=== PATIENT | female | born 1970 | race American Indian/Alaskan Native ===

== ENCOUNTER 2016-05-18 19:01 | Emergency (ER) | payer SELFPAY ==
--- NOTE | 2016-05-19 01:38 | Emergency Department Report ---
HPI - General Chief Complaint: Upper Respiratory Infection Time Seen by Provider: 05/19/16 01:33 - HPI HPI: Patient here reports that she's been having flulike symptoms for the last week. She says that his gun worse over the last 4 days. Reports Jacinta-Holgate and TheraFlu with minimal relief.She reports chills that any fever She denies any pain at present. Denies any chest pain or shortness of breath. Fourth facial pain and nasal congestion which is better when she takes Jacinta-Holgate and TheraFlu. She has a history of high blood pressure but she does not take any medication. ED Past Medical Hx - Past Medical History Previous Medical History?: Yes Hx Hypertension: Yes (no meds) - Surgical History Past Surgical History?: No - Family History Family history: hypertension - Social History Smoking Status: Never Smoker Substance Use Type: None - Medications Home Medications: Home Medications Medication Instructions Recorded Confirmed Last Taken Type Cefuroxime Axetil [Ceftin] 500 mg PO Q12H #20 tablet 08/21/13 Unknown Rx Fluconazole [Diflucan] 150 mg PO QDAY #2 tablet 08/21/13 Unknown Rx Ciprofloxacin HCl [Cipro] 500 mg PO Q12H #6 tab 10/13/13 Unknown Rx Cyclobenzaprine [Flexeril 10mg] 10 mg PO Q8H PRN #21 tablet 10/13/13 Unknown Rx Fluconazole [Diflucan TAB] 150 mg PO ONCE #1 tablet 01/09/15 Unknown Rx Sulfamethoxazole/Trimethoprim 1 each PO BID #10 tablet 01/09/15 Unknown Rx [Bactrim DS TAB] Acetaminophen/Codeine [Tylenol #3] 1 tab PO Q6H PRN #10 tab 01/24/15 Unknown Rx Cyclobenzaprine [Flexeril 10 MG 10 mg PO TID PRN #15 tablet 01/24/15 Unknown Rx TAB] Ibuprofen [Motrin 800 MG tab] 800 mg PO Q8HR PRN #30 tablet 01/24/15 Unknown Rx Nitrofurantoin Glascock/M-Cryst 100 mg PO Q12HR #14 capsule 01/24/15 Unknown Rx [Macrobid CAP] Phenazopyridine [Pyridium] 100 mg PO TID #6 tab 01/24/15 Unknown Rx Ibuprofen [Motrin] 800 mg PO Q8HR PRN #60 tablet 05/02/15 Unknown Rx Sulfamethoxazole/Trimethoprim 1 each PO BID #14 tablet 05/02/15 Unknown Rx [Bactrim DS TAB] traMADol [Ultram] 50 mg PO Q6HR PRN #14 tablet 05/02/15 Unknown Rx Azithromycin [Zithromax] 250 mg PO QDAY #6 tablet 05/19/16 Unknown Rx Cetirizine HCl [ZyrTEC] 10 mg PO QDAY #15 capsule 05/19/16 Unknown Rx Fluticasone [Flonase] 1 spray NS QDAY #1 bottle 05/19/16 Unknown Rx predniSONE [Deltasone] 50 mg PO QDAY #5 tab 05/19/16 Unknown Rx ED Review of Systems ROS: Stated complaint: FLU SYMPTOMS Other details as noted in HPI Comment: All other systems reviewed and negative Constitutional: chills. denies: fever Eyes: denies: eye pain, eye discharge ENT: congestion. denies: ear pain, throat pain Respiratory: cough. denies: orthopnea, shortness of breath, SOB with exertion, SOB at rest, stridor, wheezing Cardiovascular: denies: chest pain, palpitations, edema, syncope Gastrointestinal: denies: abdominal pain, nausea, vomiting, diarrhea, constipation Musculoskeletal: denies: back pain, arthralgia Skin: denies: rash Neurological: denies: headache, weakness, numbness, paresthesias, confusion, abnormal gait, vertigo Physical Exam - Physical Exam Vital Signs: Vital Signs 05/18/16 23:10 Temperature 98.4 F Pulse Rate 92 H Respiratory 18 Rate Blood Pressure 123/78 O2 Sat by Pulse 99 Oximetry General: 46-year-old male well-nourished well-developed in no acute distress. Physical Exam: Head: [Normocephalic atraumatic Mouth: Moist, no pharyngeal exudate or erythema. Uvula is midline and oral airway is patent. No gingival enlargement or dental tenderness. No facial swelling. No peritonsillar abscesses. Neck: Supple, no C-spine tenderness, no tracheal deviation. Nontender to palpate. no adenopathy Ears: Bilateral TMs congested without erythema .bilateral EAC without any redness swelling or drainage Eyes: Bilateral pupils equal and reactive to light, bilateral EOM intact. Bilateral sclera and conjunctiva without injection. Normal accommodation Nose: Mucosa moist, positive congestion with erythema. Positive clear drainage. Positive maxillary sinus tender to palpate. Lungs:Clear to auscultate bilaterally no rhonchi wheezes or rales. Normal work of breathing extremity; No CCE. +2 pulses. No neurovascular compromise Cardiovascular: S1-S2, regular rate rhythm. No murmurs. Skin: clean Dry and intact no rash no lesions Psych: Normal mood and behavior ED Course Vital Signs 05/18/16 23:10 Temperature 98.4 F Pulse Rate 92 H Respiratory 18 Rate Blood Pressure 123/78 O2 Sat by Pulse 99 Oximetry - Reevaluation(s) Reevaluation #1: 05/19/16 01:39 Remained stable throughout ED course. ED Medical Decision Making - Medical Decision Making ED course: I discussed the patient is an physical finding she has acute masses or sinusitis and will be treated with steroids, antibiotics and is Flonase. I instructed her she can use [id number] Zyrtec. Patient voiced understanding of discharge instruction discharged home with prescription for prednisone to start later this morning, Zithromax, nasal Flonase and Zyrtec. Critical care attestation.: If time is entered above; I have spent that time in minutes in the direct care of this critically ill patient, excluding procedure time. ED Disposition Clinical Impression: Cough Maxillary sinusitis Qualifiers: Chronicity: acute Recurrence: not specified as recurrent Qualified Code(s): J01.00 - Acute maxillary sinusitis, unspecified Disposition: DISCHARGED TO HOME OR SELFCARE Is pt being admited?: No Does the pt Need Aspirin: No Condition: Stable Instructions: Sinusitis (ED), Acute Cough in Children (ED) Additional Instructions: Flush nostrils with nasal saline flush. Take Medication as prescribed. Prescriptions: predniSONE [Deltasone] 50 mg PO QDAY #5 tab Fluticasone [Flonase] 1 spray NS QDAY #1 bottle Azithromycin [Zithromax] 250 mg PO QDAY #6 tablet Cetirizine HCl [ZyrTEC] 10 mg PO QDAY #15 capsule Referrals: [facility] [Outside] - 3-5 Days Forms: Accompanied Note, Work/School Release Form(ED)
[2016-05-19 07:18] VITALS: BP 126/75
== END 2016-05-19 01:35 | disposition home or self-care (01) ==
LOC: ED 19:01
DX: R05 Cough (principal); J01.00 Acute maxillary sinusitis, unspecified; I10 Essential (primary) hypertension
CPT/HCPCS: 99282

== ENCOUNTER 2016-11-18 17:40 | Emergency (ER) | payer MEDICAID ==
--- NOTE | 2016-11-18 17:58 | Emergency Department Report ---
Chief Complaint: Vaginal Bleeding Stated Complaint: BLEEDING/PAIN Time Seen by Provider: 11/18/16 17:55 - HPI History of Present Illness: PT states she saw her OB/ SEED CLEANING MANAGER this morning. PT states she was dx with demise over a week ago. 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 - ROS Review of Systems: + bleeding + pelvic pain - Exam Vital Signs: Vital Signs 11/18/16 17:44 Temperature 99 F Pulse Rate 99 H Respiratory 20 Rate Blood Pressure 139/90 O2 Sat by Pulse 99 Oximetry Physical Exam: PT looks well, non toxic but appears in pain. steady gait MSE screening note: Focused history and physical exam performed. Due to findings the following was ordered: labs ED Disposition for MSE Condition: Stable
[2016-11-18 18:08] LABS: Basophils % (Auto) 0.8 % (0.0-1.8); Eosinophils % (Auto) 1.6 % (0.0-4.3); Hematocrit 33.1 % (30.3-42.9); Hemoglobin 10.9 gm/dl (10.1-14.3); Mean Corpuscular HGB Conc 33 % (30-34); Mean Corpuscular Hemoglobin 27 pg (28-32); Mean Corpuscular Volume 82 fl (79-97); Platelet Count 306 K/mm3 (140-440); Red Blood Count 4.02 M/mm3 (3.65-5.03); White Blood Count 9.7 K/mm3 (4.5-11.0)
[2016-11-18 18:28] LABS: Anion Gap 26 mmol/L; BUN/Creatinine Ratio 11.66; Blood Urea Nitrogen 7 mg/dL (7-17); Calcium 9.3 mg/dL (8.4-10.2); Carbon Dioxide 17 mmol/L (22-30); Chloride 97.6 mmol/L (98-107); Glucose 101 mg/dL (65-100); Potassium 3.6 mmol/L (3.6-5.0); Sodium 137 mmol/L (137-145)
[2016-11-18] MEDS ORDERED: MORPHINE IV ONE (20:25)
--- NOTE | 2016-11-18 20:36 | Emergency Department Report ---
HPI - General Chief Complaint: Vaginal Bleeding Time Seen by Provider: 11/18/16 17:55 - HPI HPI: This is a 46-year-old Afro-[place] female presents to the emergency department with complaint of moderate to heavy vaginal bleeding and painful pelvic cramping. The patient was about 7.5 weeks at when she recently was diagnosed with a partial miscarriage by her LOADING MACHINE TOOL SETTER, Dr. Latesha Clark. She is scheduled for a D&C on the but says that the pain and bleeding had increased and seemed out of proportion with what was happening. She says she has given to 2 children previously and she says that she feels like she is having contraction-like pains. She denies any fever, dysuria, vomiting, diarrhea. She took an Excedrin for her pain without any relief. He travel or sick contacts at home. ED Past Medical Hx - Past Medical History Previous Medical History?: Yes Hx Hypertension: Yes (no meds) Additional medical history: miscarriage - Surgical History Past Surgical History?: No - Social History Smoking Status: Never Smoker Substance Use Type: Prescribed - Medications Home Medications: Home Medications Medication Instructions Recorded Confirmed Last Taken Type oxyCODONE /ACETAMINOPHEN [Percocet 1 tab PO Q6HR PRN #10 tablet 11/18/16 Unknown Rx 5/325] ED Review of Systems ROS: Stated complaint: BLEEDING/PAIN Other details as noted in HPI Comment: All other systems reviewed and negative Constitutional: denies: chills, fever Eyes: denies: eye pain, eye discharge, vision change ENT: denies: ear pain, throat pain Respiratory: denies: cough, shortness of breath, wheezing Cardiovascular: denies: chest pain, palpitations Gastrointestinal: abdominal pain, nausea. denies: vomiting Genitourinary: dysuria, discharge, other (vaginal bleeding) Musculoskeletal: denies: back pain, joint swelling, arthralgia Skin: denies: rash, lesions Neurological: denies: headache, weakness, paresthesias Physical Exam - Physical Exam Vital Signs: Vital Signs 11/18/16 17:44 Temperature 99 F Pulse Rate 99 H Respiratory 20 Rate Blood Pressure 139/90 O2 Sat by Pulse 99 Oximetry Physical Exam: GENERAL: The patient is well-developed well-nourished. HEENT: Normocephalic. Atraumatic. Extraocular motions are intact. Patient has moist mucous membranes. Pupils equal reactive to light bilaterally. NECK: Supple. Trachea is midline. CHEST/LUNGS: Clear to auscultation. There is no respiratory distress noted. HEART/CARDIOVASCULAR: Regular. There is no tachycardia. There is no gallop rub or murmur. ABDOMEN: Abdomen is soft, nontender. Patient has normal bowel sounds. There is no abdominal distention. SKIN: Skin is warm and dry. NEURO: The patient is awake, alert, and oriented. The patient is cooperative. The patient has no focal neurologic deficits. The patient has normal speech and gait. MUSCULOSKELETAL: There is no tenderness or deformity. There is no limitation range of motion. There is no evidence of acute injury. ED Course Vital Signs 11/18/16 17:44 Temperature 99 F Pulse Rate 99 H Respiratory 20 Rate Blood Pressure 139/90 O2 Sat by Pulse 99 Oximetry - Consultations Consultation #1: I spoke to the patient's LOADING MACHINE TOOL SETTER service, Dr. Mary Velasco, regarding the incomplete miscarriage and increased abdominal pain and bleeding today. Based on the patient's improvement in the emergency department, her labs and vitals, Dr. Velasco agrees that the patient appears safe for discharge home at this time. She will follow-up on the for her D&C as previously scheduled.. 11/18/16 22:48 ED Medical Decision Making - Lab Data Result diagrams: 11/18/16 18:00 11/18/16 18:00 - Radiology Data Radiology results: report reviewed Pelvic/ ultrasound shows a gestational sac measuring up to 3.1 cm is present within the lower uterine segment endometrium. No recorded cardiac activity. Continue followed up of retained products is suggested. - Medical Decision Making 46-year-old female presents with known incomplete miscarriage but increased pain and bleeding. Labs are unremarkable. Ultrasound shows gestational sac in the uterus with no record cardiac activity consistent with previous diagnosis and history. Patient felt better after low-dose morphine. Vital signs stable throughout her ED course including being afebrile. Labs are unremarkable. Patient will follow-up with LOADING MACHINE TOOL SETTER service on , 2 days from now, as previously scheduled but will return to the ER with any worsening of her symptoms or any acute distress. - Differential Diagnosis , miscarriage, fibroids Critical Care Time: No Critical care attestation.: If time is entered above; I have spent that time in minutes in the direct care of this critically ill patient, excluding procedure time. ED Disposition Clinical Impression: Incomplete miscarriage, Pelvic pain Disposition: DC- TO HOME OR SELFCARE Is pt being admited?: No Condition: Stable Instructions: Threatened Miscarriage (ED), Spontaneous Miscarriage (ED) Additional Instructions: Please follow-up with your LOADING MACHINE TOOL SETTER on the for your D&C as previously scheduled. They should touch base with few tomorrow regarding scheduling. Return to the emergency department with any worsening of your symptoms or any acute distress. You've been prescribed a medication that is sedating. Therefore this medication cannot be mixed with alcohol, or taken prior to driving, working, or being responsible for children. Prescriptions: oxyCODONE /ACETAMINOPHEN [Percocet 5/325] 1 tab PO Q6HR PRN #10 tablet PRN Reason: Pain Referrals: LATESHA CLARK MD [Staff Physician] - 11/20/16 Time of Disposition: 22:57
[2016-11-18 21:00] LABS: Bilirubin,Urine NEG (Negative); Blood,Urine LG (Negative); Ketones,Urine NEG (Negative); Leukocyte Esterase,Urine TR (Negative); Mucus,Urine FEW /HPF; Nitrite,Urine NEG (Negative)
[2016-11-18 21:01] LABS: RBC,Urine > 182.0 /HPF (0.0-6.0)
[2016-11-18 21:40] VITALS: BP 142/89
--- NOTE | 2016-11-18 22:09 | Ultrasound Report ---
FINAL REPORT EXAM: US OB \T\lt; = 14 WEEKS FETUS HISTORY: Recent miscarriage, vag bleeding, products retaine COMPARISONS: None. FINDINGS: Transabdominal grayscale, color and M-mode ultrasound evaluation of the pelvis Probable gestational sac is present within the lower uterine segment endometrium and measures up to 3.1 cm in greatest dimension. An 8 millimeter embryo crown-rump length is suggested. No recorded cardiac activity. Fundal portion of the endometrium is homogeneous and measures up to 8 millimeters. The left ovary measures 3.1 x 2.7 x 3.2 cm and contains 2.4 cm dominant follicle. The right ovary is not well visualized secondary to overlying bowel gas. IMPRESSION: Gestational sac measuring up to 3.1 cm is present within the lower uterine segment endometrium. No recorded cardiac activity, compatible with provided history. Continued follow-up of retained products is suggested.
--- NOTE | 2016-11-19 02:45 | Ultrasound Report ---
FINAL REPORT PROCEDURE: US OB TRANSVAGINAL TECHNIQUE: Real-time transvaginal sonography of the uterus, placenta, amniotic fluid, adnexa, and fetus was performed with image documentation. Measurements were obtained to determine age/size. M-mode Doppler was used to document heartbeat. CPT 19605 HISTORY: Vaginal Bleeding, Recent misscarriage, products retaine COMPARISON: No prior studies are available for comparison. FINDINGS: The uterus size is 11.4 x 5 x 5.7 centimeters. Within the uterus there is a gestational sac. A pole is identified measuring 11 millimeters. This would correspond or approximate gestational age of 7 weeks. There is no evidence of embryonic heart activity. The findings are most consistent with embryonic demise. There are retained products within the uterus. The right ovary is not visualized. The left ovary size is 3.1 x 2.7 x 3.2 centimeters. There is a dominant cyst on the left ovary this measures 24 millimeters. IMPRESSION: There is a gestational sac within the uterus. The pole is identified with no evidence of embryonic heart activity. The findings are most consistent with embryonic demise and retained products within the uterus.
== END 2016-11-18 23:12 | disposition home or self-care (01) ==
LOC: ED 17:40
DX: O03.4 Incomplete spontaneous abortion without complication (principal); O16.1 Unspecified maternal hypertension, first trimester; Z3A.01 Less than 8 weeks gestation of pregnancy
CPT/HCPCS: 36415; 76801; 76817; 80048; 81001; 84702; 85025; 86850; 86900; 86901; 96374; 99284; J2270

== ENCOUNTER 2016-11-20 07:09 | Day surgery (SDC) | payer MEDICAID ==
--- NOTE | 2016-11-20 07:12 | History and Physical Report ---
History of Present Illness Date of examination: 11/20/16 Date of admission: 11/19/16 Chief complaint: missed History of present illness: 46yo female with missed and bleeding Past History Past Surgical History: No surgical history Social history: no significant social history, . denies: smoking, alcohol abuse, prescription drug abuse Family history: no significant family history Medications and Allergies Allergies Allergy/AdvReac Type Severity Reaction Status Date / Time Penicillins AdvReac Unknown Verified 11/19/16 12:21 Home Medications Medication Instructions Recorded Confirmed Last Taken Type oxyCODONE /ACETAMINOPHEN [Percocet 1 tab PO Q6HR PRN #10 tablet 11/18/16 Unknown Rx 5/325] Review of Systems All systems: negative Exam - General physical appearance Positive: well developed, well nourished, no distress, moderate distress - Neck Positive: no masses - Respiratory Positive: normal expansion, normal respiratory effort, clear to percussion, clear to auscultation - Cardiovascular Rhythm: regular Heart Sounds: Present: S1 & S2 - Extremities Extremities: No edema Peripheral Pulses: within normal limits - Breasts Breasts: deferred - Abdomen Abdomen: Present: soft, bowel sounds normal. Absent: tender, distended, guarding Hernia: none - Genitourinary Female Genitourinary: normal - Integumentary no rash, no abnormal pigmentation - Neurologic Neurologic: alert and oriented to time, place and person, motor strength and sensation are grossly intact, CN II-XII intact - Musculoskeletal normal gait, normal posture Assessment and Plan A/P Missed discussed treatment plan which include conservative vs meidical vs surgical Patient desires surgical intervention with D and C Discussed risk of surgery which include bleeding infection perforation damage to pelvic and non pelvic organs risk of hysterectomy and risk of patient agrees after discussion of risks , signed consents and will proceed with suction D and C
[2016-11-20] MEDS ORDERED: VERSED IV NR (08:00)
--- NOTE | 2016-11-20 08:46 | Anesthesia Day of Surgery ---
Anesthesia Day of Surgery - Day of Surgery Patient Examined: Yes Patient H&P Reviewed: Yes Patient is NPO: Yes
--- NOTE | 2016-11-20 08:47 | Anesthesia Consultation ---
Anesthesia Consult and Med Hx Date of service: 11/20/16 - Airway Anesthetic Teeth Evaluation: Good ROM Head & Neck: Adequate Mental/Hyoid Distance: Adequate Mallampati Class: Class II Intubation Access Assessment: Probably Good - Pulmonary Exam CTA: Yes - Cardiac Exam Cardiac Exam: RRR - Pre-Operative Health Status ASA Pre-Surgery Classification: ASA2 Proposed Anesthetic Plan: General - Pulmonary Hx Smoking: No Hx Asthma: No - Cardiovascular System Hx Hypertension: No - Central Nervous System Hx Seizures: No CVA: No Hx Psychiatric Problems: No - Endocrine Hx Renal Disease: No Hx Liver Disease: No Hx Hypothyroidism: No - Other Systems Hx Cancer: No Hx Obesity: Yes (BMI 32.4) - Additional Comments Anesthesia Medical History Comments: MISSED
[2016-11-20] MEDS ORDERED: PEPCID PO NR (09:00)
[2016-11-20] MEDS ORDERED: NACL 0.9% 1000 ML 1,000 ML IV SCH (09:00)
[2016-11-20] MEDS ORDERED: DILAUDID IV PRN (09:00)
[2016-11-20] MEDS ORDERED: ZOFRAN IV PRN (09:00)
[2016-11-20] MEDS ORDERED: XYLOCAINE MPF 2% ONE (09:07)
[2016-11-20] MEDS ORDERED: SUBLIMAZE ONE (09:07)
[2016-11-20] MEDS ORDERED: DIPRIVAN 10 MG/ML IV ONE (09:08)
[2016-11-20] MEDS ORDERED: DECADRON ONE (09:50)
[2016-11-20] MEDS ORDERED: ZOFRAN ONE (09:50)
--- NOTE | 2016-11-20 09:51 | Ultrasound Report ---
ULTRASOUND OB LESS THAN 14 WEEKS - TRANSABDOMINAL INDICATION: Endometrial evaluation before D\T\C. COMPARISON: 11/18/2016 FINDINGS: Transabdominal pelvic sonography performed in this patient with LMP of 09/01/2016 and estimated menstrual age of 11 weeks and 3 days. A 7.3 x 5.5 x 5.9 cm anteverted uterus again demonstrates an irregular gestational sac in the lower uterine segment with an intrinsic pole. Mean gestational sac diameter of 3 cm corresponds to 8 weeks and 1 day. Mean crown-rump length of 1.5 cm corresponds to 7 weeks and 6 days. No cardiac activity obtained. Endometrial thickness towards the fundus is 1.2 cm, image 8. No significant pelvic free fluid. Neither of the ovaries visualized. CONCLUSION: Sonographic findings in keeping with inevitable , intrauterine demise, as described. Please correlate. Thank you for the opportunity to participate in this patient's care.
[2016-11-20] MEDS ORDERED: NACL 0.9% IR ONE (10:00)
[2016-11-20] MEDS ORDERED: SILVER NITRATE TP ONE (10:04)
--- NOTE | 2016-11-20 11:51 | Post Anesthesia Evaluation ---
- Post Anesthesia Evaluation Patient Participated: Yes Airway Patent: Yes Stable Respiratory Function: Yes Nausea/Vomiting: No Temp > 96.8F: Yes Pain Manageable: Yes Adequeate Hydration: Yes Anesthesia Complications: No Block Receding Appropriately: Not Applicable Patient on Ventilator: No
[2016-11-20 12:29] VITALS: BP 121/82
--- NOTE | 2016-12-01 12:21 | Operative Report ---
Operative Report Operative Report: DATE OF OPERATION: 11/20/16 PREOPERATIVE DIAGNOSIS: Incomplete spontaneous with vaginal bleeding. POSTOPERATIVE DIAGNOSIS: Incomplete spontaneous with vaginal bleeding. OPERATION PERFORMED: Dilation and curettage. SURGEON: Latehsa Clark MD ASSISTANTS: None. ANESTHESIA: General endotracheal anesthesia. INDICATIONS FOR OPERATION: The patient is a 46 -year-old 3, para 2 at 8 weeks who presented today withhistory of missed with bleeding . The patient was seen in the emergency room where she was found to have dilated cervix and passing clots. There was no evidence of products of conception or passage of products of conception from the vagina. Transvaginal ultrasound performed in the emergency room showed no gestational sac in the uterus and a large amount of blood and tissue within the uterus near the internal os. The ultrasound in the emergency room also showed no fluid in the cul-de-sac and both adnexa were well visualized and within normal limits. The patient was counseled at that time for expectant management and dilation and curettage to evacuate the uterus and the patient choose to have the D&C. OPERATIVE FINDINGS: Pertinent findings at the time of procedure are products of conception at the internal os. Specimens removed were contents of uterus. Estimated blood loss min . No complications. DESCRIPTION OF PROCEDURE: The patient was taken from the preoperative holding area to the operating room. Prior to the procedure, the patient was fully counseled as to the risks, benefits, indications, and options for the procedure , to which the patient agreed. The patient was placed supine on the operating room table. General endotracheal anesthesia was administered, and once adequate anesthesia was demonstrated, the patients legs were then placed in candy cane stirrups. The patient was then prepped and draped in the standard surgical fashion for D&C. The patient was placed in 10 degrees of Trendelenburg.The bladder was then decompressed and approximately 30 mL of urine was produced. A weighted speculum was placed in the posterior vagina and cervix was grasped with single tooth tenaculum. Uterus sounded to 8 cm. The cervix was then serially dilated with Hanks dilator. An 8 cm straight suction curette was then introduced and a suction curettage was performed. Once all products of conception were evacuated , a sharp curettage was performed until a gritty surface was appreciated on all four quadrants of the uterus. No further bleeding was noted. Products of conception were then examined on the back table, which was grossly consistent with products of conception. The patient tolerated the procedure and anesthesia well, was awakened from anesthesia without complications and was transported to the recovery room in stable condition.
== END 2016-11-20 11:31 | disposition home or self-care (01) ==
LOC: OR 07:09
PROVIDERS: ATTEND Obstetrics & Gynecology
DX: O02.1 Missed abortion (principal); E66.9 Obesity, unspecified; Z68.32 Body mass index [BMI] 32.0-32.9, adult; Z88.0 Allergy status to penicillin
CPT/HCPCS: 59820; 76801; 86900; 86901; 88305; J1100; J2250; J2405; J2704; J3010; J7030

== ENCOUNTER 2019-04-21 15:51 | Emergency (ER) | payer SELFPAY ==
--- NOTE | 2019-04-21 16:11 | Emergency Department Report ---
Blank Doc - Documentation Documentation: 49-year-old female that presents with dizziness and lightheadedness. This initial assessment/diagnostic orders/clinical plan/treatment(s) is/are subject to change based on patient's health status, clinical progression and re- assessment by fellow clinical providers in the ED. Further treatment and workup at subsequent clinical providers discretion. Patient/guardians urged not to elope from the ED as their condition may be serious if not clinically assessed and managed. Initial orders include: 1- Patient sent to [facility] for further evaluation and treatment 2- labs 3- EKG
[2019-04-21 16:30] LABS: Hematocrit 32.6 % (30.3-42.9); Hemoglobin 11.2 gm/dl (10.1-14.3); Mean Corpuscular HGB Conc 34 % (30-34); Mean Corpuscular Volume 82 fl (79-97); Platelet Count 295 K/mm3 (140-440); Red Blood Count 3.98 M/mm3 (3.65-5.03); Red Cell Distribution Width 14.7 % (13.2-15.2)
[2019-04-21 16:52] LABS: Alanine Aminotransferase 12 units/L (7-56); Albumin 3.8 g/dL (3.9-5); BUN/Creatinine Ratio 17; Blood Urea Nitrogen 12 mg/dL (7-17); Calcium 9.2 mg/dL (8.4-10.2); Hemolysis Index 6
[2019-04-21 18:20] LABS: Basophils % (Manual) 0 % (0.0-1.8); Eosinophils % (Manual) 0 % (0.0-4.3); Total Cells Counted 100
[2019-04-21 18:21] LABS: Anisocytosis 1+
[2019-04-21 18:22] LABS: Target Cells 1+
[2019-04-21] MEDS ORDERED: POTASSIUM CHLORIDE ER 20 MEQ TAB PO ONE (20:23)
[2019-04-21 20:45] LABS: Bacteria,Urine 4+ /HPF (Negative); Bilirubin,Urine NEG (Negative); Blood,Urine SM (Negative); Color,Urine Yellow (Yellow); Mucus,Urine 1+ /HPF; Protein,Urine <15 mg/dL mg/dL (Negative); Urobilinogen,Urine < 2.0 mg/dL (<2.0)
[2019-04-21] MEDS ORDERED: LIDOCAINE-MPF (1%) 10 MG/1 ML VIAL 5 ML INFILTRATI ONE (21:04)
--- NOTE | 2019-04-21 21:09 | Emergency Department Report ---
ED General Adult HPI - General Chief complaint: Dizziness Stated complaint: DIZZY Time Seen by Provider: 04/21/19 16:10 Source: patient Mode of arrival: Ambulatory Limitations: No Limitations - History of Present Illness Initial comments: pt is a 49-year-old female presents emergency room with complaints of lightheadedness occurred 2 days ago and occurred again today. She states it occurred today while she was at work and lasted for approximately 2-3 minutes. She states also for 2 days she has had urinary frequency and low back discomfort. She denies any dizziness, sensation of the room spinning, nausea, vomiting, fever, vision changes, numbness, weakness. She denies any past medical history. She states that she does not have an allergy to penicillin. She states that she stopped taking Depo-Provera approximately one month ago. - Related Data Previous Rx's Medication Instructions Recorded Last Taken Type oxyCODONE /ACETAMINOPHEN [Percocet 1 tab PO Q6HR PRN #10 tablet 11/18/16 11/19/16 06:45 Rx 5/325] cephALEXin [Keflex] 500 mg PO Q12HR 7 Days #14 cap 04/21/19 Unknown Rx ED Review of Systems ROS: Stated complaint: DIZZY Other details as noted in HPI Comment: All other systems reviewed and negative ED Past Medical Hx - Past Medical History Hx Hypertension: No Hx Liver Disease: No Hx Renal Disease: No Hx Seizures: No Hx Asthma: No Additional medical history: miscarriage - Social History Smoking Status: Never Smoker - Medications Home Medications: Home Medications Medication Instructions Recorded Confirmed Last Taken Type oxyCODONE /ACETAMINOPHEN [Percocet 1 tab PO Q6HR PRN #10 tablet 11/18/16 11/20/16 11/19/16 06:45 Rx 5/325] cephALEXin [Keflex] 500 mg PO Q12HR 7 Days #14 cap 04/21/19 Unknown Rx ED Physical Exam - General Limitations: No Limitations General appearance: alert, in no apparent distress - Head Head exam: Present: atraumatic, normocephalic - Eye Eye exam: Present: normal appearance, PERRL, EOMI. Absent: scleral icterus, conjunctival injection, nystagmus, periorbital swelling, periorbital tenderness - ENT ENT exam: Present: mucous membranes moist - Respiratory Respiratory exam: Present: normal lung sounds bilaterally. Absent: respiratory distress, wheezes, rales, rhonchi, stridor, chest wall tenderness, accessory muscle use, decreased breath sounds, prolonged expiratory - Cardiovascular Cardiovascular Exam: Present: regular rate, normal rhythm, normal heart sounds. Absent: systolic murmur, diastolic murmur, rubs, gallop - Neurological Exam Neurological exam: Present: alert, oriented X3, CN II-XII intact, normal gait, other (normal finger to nose, normal heel to sherman, 5/5 strength in the BUE/BLE, sensation intact throughout, no focal neuro deficit). Absent: motor sensory deficit - Psychiatric Psychiatric exam: Present: normal affect, normal mood - Skin Skin exam: Present: warm, dry, intact ED Course Vital Signs 04/21/19 04/21/19 16:11 21:47 Temperature 98.3 F Pulse Rate 88 88 Respiratory 16 17 Rate Blood Pressure 123/87 Blood Pressure 134/86 [Left] O2 Sat by Pulse 100 99 Oximetry ED Medical Decision Making - Lab Data Result diagrams: 04/21/19 16:15 04/21/19 16:15 Lab Results 04/21/19 04/21/19 04/21/19 Range/Units 16:15 16:15 16:15 WBC 8.7 (4.5-11.0) K/mm3 RBC 3.98 (3.65-5.03) M/mm3 Hgb 11.2 (10.1-14.3) gm/dl Hct 32.6 (30.3-42.9) % MCV 82 (79-97) fl MCH 28 (28-32) pg MCHC 34 (30-34) % RDW 14.7 (13.2-15.2) % Plt Count 295 (140-440) K/mm3 Add Manual Diff Complete Total Counted 100 Seg Neuts % (Manual) 69.0 (40.0-70.0) % Band Neutrophils % 0 % Lymphocytes % (Manual) 24.0 (13.4-35.0) % Reactive Lymphs % (Man) 0 % Monocytes % (Manual) 7.0 (0.0-7.3) % Eosinophils % (Manual) 0 (0.0-4.3) % Basophils % (Manual) 0 (0.0-1.8) % Metamyelocytes % 0 % Myelocytes % 0 % Promyelocytes % 0 % Blast Cells % 0 % Nucleated RBC % Not Reportable Seg Neutrophils # Man 6.0 (1.8-7.7) K/mm3 Band Neutrophils # 0.0 K/mm3 Lymphocytes # (Manual) 2.1 (1.2-5.4) K/mm3 Abs React Lymphs (Man) 0.0 K/mm3 Monocytes # (Manual) 0.6 (0.0-0.8) K/mm3 Eosinophils # (Manual) 0.0 (0.0-0.4) K/mm3 Basophils # (Manual) 0.0 (0.0-0.1) K/mm3 Metamyelocytes # 0.0 K/mm3 Myelocytes # 0.0 K/mm3 Promyelocytes # 0.0 K/mm3 Blast Cells # 0.0 K/mm3 WBC Morphology Not Reportable Hypersegmented Neuts Not Reportable Hyposegmented Neuts Not Reportable Hypogranular Neuts Not Reportable Smudge Cells Not Reportable Toxic Granulation Not Reportable Toxic Vacuolation Not Reportable Dohle Bodies Not Reportable Pelger-Huet Anomaly Not Reportable Lauri Rods Not Reportable Platelet Estimate Appears normal Clumped Platelets Not Reportable Plt Clumps, EDTA Not Reportable Large Platelets Not Reportable Giant Platelets Not Reportable Platelet Satelliting Not Reportable Plt Morphology Comment Not Reportable RBC Morphology Not Reportable Dimorphic RBCs Not Reportable Polychromasia Not Reportable Hypochromasia Not Reportable Poikilocytosis Not Reportable Anisocytosis 1+ Microcytosis Not Reportable Macrocytosis Not Reportable Spherocytes Not Reportable Pappenheimer Bodies Not Reportable Sickle Cells Not Reportable Target Cells 1+ Tear Drop Cells Not Reportable Ovalocytes Not Reportable Helmet Cells Not Reportable Rey-Onyx Bodies Not Reportable Delphos Rings Not Reportable [place] Cells Not Reportable Bite Cells Not Reportable Crenated Cell Not Reportable Elliptocytes Not Reportable Acanthocytes (Spur) Not Reportable Rouleaux Not Reportable Hemoglobin C Crystals Not Reportable Schistocytes Not Reportable Malaria parasites Not Reportable Stan Bodies Not Reportable Hem Pathologist Commnt No Sodium 138 (137-145) mmol/L Potassium 3.4 L (3.6-5.0) mmol/L Chloride 99.4 (98-107) mmol/L Carbon Dioxide 23 (22-30) mmol/L Anion Gap 19 mmol/L BUN 12 (7-17) mg/dL Creatinine 0.7 (0.7-1.2) mg/dL Estimated GFR > 60 ml/min BUN/Creatinine Ratio 17 % Glucose 99 (65-100) mg/dL Calcium 9.2 (8.4-10.2) mg/dL Total Bilirubin 0.30 (0.1-1.2) mg/dL AST 11 (5-40) units/L ALT 12 (7-56) units/L Alkaline Phosphatase 60 (35-129) units/L Total Protein 7.7 (6.3-8.2) g/dL Albumin 3.8 L (3.9-5) g/dL Albumin/Globulin Ratio 1.0 % HCG, Qual Negative (Negative) Urine Color (Yellow) Urine Turbidity (Clear) Urine pH (5.0-7.0) Ur Specific Ono (1.003-1.030) Urine Protein (Negative) mg/dL Urine Glucose (UA) (Negative) mg/dL Urine Ketones (Negative) mg/dL Urine Blood (Negative) Urine Nitrite (Negative) Urine Bilirubin (Negative) Urine Urobilinogen (<2.0) mg/dL Ur Leukocyte Esterase (Negative) Urine WBC (Auto) (0.0-6.0) /HPF Urine RBC (Auto) (0.0-6.0) /HPF U Epithel Cells (Auto) (0-13.0) /HPF Urine Bacteria (Auto) (Negative) /HPF Urine Mucus /HPF 04/21/19 Range/Units Unknown WBC (4.5-11.0) K/mm3 RBC (3.65-5.03) M/mm3 Hgb (10.1-14.3) gm/dl Hct (30.3-42.9) % MCV (79-97) fl MCH (28-32) pg MCHC (30-34) % RDW (13.2-15.2) % Plt Count (140-440) K/mm3 Add Manual Diff Total Counted Seg Neuts % (Manual) (40.0-70.0) % Band Neutrophils % % Lymphocytes % (Manual) (13.4-35.0) % Reactive Lymphs % (Man) % Monocytes % (Manual) (0.0-7.3) % Eosinophils % (Manual) (0.0-4.3) % Basophils % (Manual) (0.0-1.8) % Metamyelocytes % % Myelocytes % % Promyelocytes % % Blast Cells % % Nucleated RBC % Seg Neutrophils # Man (1.8-7.7) K/mm3 Band Neutrophils # K/mm3 Lymphocytes # (Manual) (1.2-5.4) K/mm3 Abs React Lymphs (Man) K/mm3 Monocytes # (Manual) (0.0-0.8) K/mm3 Eosinophils # (Manual) (0.0-0.4) K/mm3 Basophils # (Manual) (0.0-0.1) K/mm3 Metamyelocytes # K/mm3 Myelocytes # K/mm3 Promyelocytes # K/mm3 Blast Cells # K/mm3 WBC Morphology Hypersegmented Neuts Hyposegmented Neuts Hypogranular Neuts Smudge Cells Toxic Granulation Toxic Vacuolation Dohle Bodies Pelger-Huet Anomaly Lauri Rods Platelet Estimate Clumped Platelets Plt Clumps, EDTA Large Platelets Giant Platelets Platelet Satelliting Plt Morphology Comment RBC Morphology Dimorphic RBCs Polychromasia Hypochromasia Poikilocytosis Anisocytosis Microcytosis Macrocytosis Spherocytes Pappenheimer Bodies Sickle Cells Target Cells Tear Drop Cells Ovalocytes Helmet Cells Rey-Onyx Bodies Delphos Rings Adrianna Cells Bite Cells Crenated Cell Elliptocytes Acanthocytes (Spur) Rouleaux Hemoglobin C Crystals Schistocytes Malaria parasites Stan Bodies Hem Pathologist Commnt Sodium (137-145) mmol/L Potassium (3.6-5.0) mmol/L Chloride (98-107) mmol/L Carbon Dioxide (22-30) mmol/L Anion Gap mmol/L BUN (7-17) mg/dL Creatinine (0.7-1.2) mg/dL Estimated GFR ml/min BUN/Creatinine Ratio % Glucose (65-100) mg/dL Calcium (8.4-10.2) mg/dL Total Bilirubin (0.1-1.2) mg/dL AST (5-40) units/L ALT (7-56) units/L Alkaline Phosphatase (35-129) units/L Total Protein (6.3-8.2) g/dL Albumin (3.9-5) g/dL Albumin/Globulin Ratio % HCG, Qual (Negative) Urine Color Yellow (Yellow) Urine Turbidity Slightly-cloudy (Clear) Urine pH 5.0 (5.0-7.0) Ur Specific Ono 1.015 (1.003-1.030) Urine Protein <15 mg/dl (Negative) mg/dL Urine Glucose (UA) Neg (Negative) mg/dL Urine Ketones Neg (Negative) mg/dL Urine Blood Sm (Negative) Urine Nitrite Pos (Negative) Urine Bilirubin Neg (Negative) Urine Urobilinogen < 2.0 (<2.0) mg/dL Ur Leukocyte Esterase Lg (Negative) Urine WBC (Auto) 162.0 H (0.0-6.0) /HPF Urine RBC (Auto) 7.0 (0.0-6.0) /HPF U Epithel Cells (Auto) 1.0 (0-13.0) /HPF Urine Bacteria (Auto) 4+ (Negative) /HPF Urine Mucus 1+ /HPF - EKG Data EKG shows normal: sinus rhythm, axis, intervals, QRS complexes, ST-T waves Rate: normal - Medical Decision Making pt is a 49-year-old female presents emergency room with complaints of lightheadedness occurred 2 days ago and occurred again today. She states it occurred today while she was at work and lasted for approximately 2-3 minutes. She states also for 2 days she has had urinary frequency and low back discomfort. She denies any dizziness, sensation of the room spinning, nausea, vomiting, fever, vision changes, numbness, weakness. She denies any past medical history. She states that she does not have an allergy to penicillin. She states that she stopped taking Depo-Provera approximately one month ago. labs with mild hypokalemia otherwise normal. Repleted her potassium with K-Dur. UA shows evidence of UTI. Patient given 1 g of ceftriaxone. pt given prescription for keflex. advised pt to take medication as prescribed to completion. Increase your water intake over the next several days. Please follow-up with a primary care doctor in the next 3-5 days and have your urine retested. Return to the emergency room for any new or worsening symptoms. - Differential Diagnosis UTI, electrolyte disturbance, arrhythmia, Critical care attestation.: If time is entered above; I have spent that time in minutes in the direct care of this critically ill patient, excluding procedure time. ED Disposition Clinical Impression: Light-headedness Urinary tract infection Qualifiers: Urinary tract infection type: acute cystitis Hematuria presence: without hematuria Qualified Code(s): N30.00 - Acute cystitis without hematuria Disposition: TO HOME OR SELFCARE Is pt being admited?: No Does the pt Need Aspirin: No Condition: Stable Instructions: Urinary Tract Infection in Women (ED) Additional Instructions: Take medication as prescribed to completion. Increase your water intake over the next several days. Please follow-up with a primary care doctor in the next 3-5 days and have your urine retested. Return to the emergency room for any new or worsening symptoms. Prescriptions: cephALEXin [Keflex] 500 mg PO Q12HR 7 Days #14 cap Referrals: PRIMARY CARE, [Primary Care Provider] - 3-5 Days Forms: Work/School Release Form(ED) Time of Disposition: 21:08 Print Language: CYMRAES
[2019-04-21 21:48] VITALS: BP 134/86
== END 2019-04-21 21:47 | disposition home or self-care (01) ==
LOC: ED 15:51
DX: R42 Dizziness and giddiness (principal); N39.0 Urinary tract infection, site not specified
CPT/HCPCS: 36415; 80053; 81001; 84703; 85007; 85025; 93005; 93010; 96372; 99283; J0696